=== PATIENT | male | born 1960 | race Hispanic/Latino ===

== ENCOUNTER 2018-12-07 13:29 | Outpatient (CLI) | payer BC ==
--- NOTE | 2018-12-07 16:51 | ULT ---
RENAL SONOGRAM: Date: 12-07-18 History: Nephrolithiasis. FINDINGS: The right kidney measures 11.1 cm x 5.6 cm with the left kidney measuring 11.7 cm x 6.1 cm. There is a small echogenic focus in the inferior pole left kidney measuring 0.9 cm, but no definite posterior shadowing is seen to confirm that this represents a nonobstructing renal calculus and this may repres ent a prominent vessel. No additional findings are seen to suggest renal calculi. There is no hydrone phrosis or renal mass. The urinary bladder has a normal sonographic appearance. Color flow evaluation of the urinary bladder demonstrates flow from ureteral jets bilaterally. IMPRESSION: 1. Normal appearing bilateral kidneys without evidence of hydronephrosis. 2. Normal appearing urinary bladder. 3. Echogenic focus inferior pole left kidney, probably related to a prominent vessel as opposed to a nonobstructing renal calculus. POS: NEIL
== END 2018-12-07 13:30 | disposition home or self-care (01) ==
LOC: BICULT 13:29
PROVIDERS: ATTEND Internal Medicine Nephrology
DX: N18.3 Chronic kidney disease, stage 3 (moderate) (principal); N20.0 Calculus of kidney; R93.422 Abnormal radiologic findings on diagnostic imaging of left kidney
CPT/HCPCS: 76770